=== PATIENT | male | born 1955 | race African-American/Black ===

== ENCOUNTER 2020-03-10 16:09 | Inpatient (IN) | payer MEDICAID ==
[~2020-03-10] VITALS: Ht 172.7 cm; Wt 95.3 kg
[2020-03-10] VITALS (10 sets, daily range): BP systolic 100–182; BP diastolic 68–116
[2020-03-10] MEDS ORDERED: EPINEPHRINE 0.1MG/ML (1:10,000) 10ML SYR ONE (16:26)
[2020-03-10] MEDS ORDERED: MIDAZOLAM HCL 2 MG/2 ML VIAL ONE (16:56)
[2020-03-10] MEDS ORDERED: PROPOFOL 10MG/ML 100ML 100 ML IV SCH (17:00)
[2020-03-10] MEDS ORDERED: SODIUM CHLORIDE 0.9% 1,000 ML IV ONE (17:00)
[2020-03-10 17:30] LABS: BG BASE EXCESS -9.5 mmol/L (-2.0-2.0); BG CARBOXYHEMOGLOBIN 0.3 % (0.5-1.5); BG DEOXYHEMOGLOBIN 0.4 % (0.0-5.0); BG FRACTION INSPIRED OXYGEN 100; BG HCO3 ACT 21.1 mmol/L (22.0-26.0); BG METHEMOGLOBIN 0.7 % (0.0-1.5); BG OXYGEN SATURATION 99.6 % (92.0-98.5); BG OXYHEMOGLOBIN 98.6 % (94.0-97.0); BG PCO2 72.4 mmHg (35.0-45.0); BG PH 7.083 (7.350-7.450); BG PO2 568.7 mmHg (75.0-100.0); BG SAMPLE SITE RIGHT RADIAL; BG TIDAL VOLUME(mL) 500 mL; BG TOTAL HEMOGLOBIN 11.6 g/dL (12.0-18.0); BG VENT MODE VENT - A/C; BG VENT RATE 16 set
[2020-03-10 18:08] LABS: HEMATOCRIT. 32.1 % (42.0-52.0); HEMOGLOBIN. 10.8 g/dL (14.0-18.0); MEAN CORPUSCULAR HEMOGLOBIN 29.8 pg (28.0-32.0); MEAN PLATELET VOLUME 6.4 fl (7.4-10.4); PLATELET 333 x1000/uL (130-400); RED BLOOD CELL COUNT 3.61 mill/uL (4.7-6.1); RED CELL DISTRIBUTION WIDTH 15.9 % (11.6-14.6)
[2020-03-10 18:08] LABS: CLARITY URINE CLOUDY (CLEAR); COLOR URINE ORANGE (YELLOW); KETONES URINE NEGATIVE (NEGATIVE); LEUKOCYTE ESTERASE URINE NEGATIVE (NEGATIVE); NITRITE URINE NEGATIVE (NEGATIVE); OCCULT BLOOD URINE 2+ (NEGATIVE); PH URINE 6.5 (4.5-8.0); PROTEIN URINE 3+ (NEGATIVE); SPECIFIC GRAVITY URINE 1.014 (1.005-1.030)
[2020-03-10] MEDS ORDERED: LORAZEPAM 2MG/ML CPJ ONE (18:12)
[2020-03-10 18:14] LABS: PROTHROMBIN TIME 10.5 sec (9.6-11.0)
[2020-03-10 18:19] LABS: CHLORIDE 106 mEq/L (98-107)
[2020-03-10] MEDS ORDERED: MIDAZOLAM HCL 50 MG in DEXTROSE 5% WATER 40 ML IV ONE (18:45)
[2020-03-10] MEDS ORDERED: FENTANYL CITRATE/PF 500 MCG in SODIUM CHLORIDE 0.9% 40 ML IV PRN ×2 (18:45→19:00)
[2020-03-10] MEDS ORDERED: NOREPINEPHRINE 4 MG in DEXT 5% WATER 246 ML IV ONE (18:45)
[2020-03-10] MEDS ORDERED: NOREPINEPHRINE 4MG/250ML PMX 250 ML IV ONE (18:46)
[2020-03-10 18:59] LABS: PLATELET ESTIMATE NORMAL
[2020-03-10] MEDS ORDERED: ASPIRIN 300MG SUPP PR ONE (19:00)
[2020-03-10] MEDS ORDERED: MIDAZOLAM HCL 50 MG in DEXTROSE 5% WATER 40 ML IV NR (19:00)
[2020-03-10] MEDS ORDERED: ALBUTEROL (0.083%) 2.5MG/3ML NEB HHN STA (19:02)
[2020-03-10] MEDS ORDERED: IPRATROPIUM BROMIDE (0.02%) 0.5MG/2.5ML NEB HHN STA (19:02)
[2020-03-10] MEDS ORDERED: SODIUM CHLORIDE 0.9% 1,000 ML IV SCH (21:49)
[2020-03-10] MEDS ORDERED: ONDANSETRON HCL 4MG/2ML INJ IV PRN (22:00)
[2020-03-10] MEDS ORDERED: DOCUSATE SODIUM 100MG CAPSULE PO PRN (22:00)
[2020-03-10] MEDS ORDERED: ASPIRIN 325MG EC TABLET PO SCH (22:00)
[2020-03-10] MEDS ORDERED: ZOLPIDEM TARTRATE 5MG TABLET PO PRN (22:00)
[2020-03-10 22:33] LABS: BG BASE EXCESS -4.8 mmol/L (-2.0-2.0); BG CARBOXYHEMOGLOBIN 0.3 % (0.5-1.5); BG DEOXYHEMOGLOBIN 2.8 % (0.0-5.0); BG FRACTION INSPIRED OXYGEN 50; BG HCO3 ACT 21.3 mmol/L (22.0-26.0); BG METHEMOGLOBIN 0.4 % (0.0-1.5); BG OXYGEN SATURATION 97.2 % (92.0-98.5); BG OXYHEMOGLOBIN 96.5 % (94.0-97.0); BG PCO2 43.4 mmHg (35.0-45.0); BG PH 7.309 (7.350-7.450); BG PO2 103.8 mmHg (75.0-100.0); BG SAMPLE SITE LEFT RADIAL; BG TIDAL VOLUME(mL) 500 mL; BG TOTAL HEMOGLOBIN 11.8 g/dL (12.0-18.0); BG VENT MODE VENT - A/C; BG VENT RATE 20 set
[2020-03-10] MEDS ORDERED: NOREPINEPHRINE 4 MG in DEXT 5% WATER 246 ML IV SCH ×4 (23:00)
[2020-03-10 23:41] LABS: CHLORIDE 109 mEq/L (98-107)
[2020-03-10 23:49] LABS: CREATINE KINASE 986 IU/L (39-308)
[2020-03-10 23:51] LABS: *AMPHETAMINES SCREEN URINE NEGATIVE (NEGATIVE)
[2020-03-10 23:52] LABS: *BARBITURATES SCREEN URINE NEGATIVE (NEGATIVE); *BENZODIAZEPINES SCREEN URINE PRESUMTIVE POSITIVE (NEGATIVE); *COCAINE SCREEN URINE PRESUMTIVE POSITIVE (NEGATIVE); CANNABINOID URINE SCREEN NEGATIVE (NEGATIVE); CREATINE KINASE MB FRACTION 13.3 ng/mL (0.5-3.6); METHADONE URINE SCREEN NEGATIVE (NEGATIVE); OPIATES URINE SCREEN NEGATIVE (NEGATIVE); PHENCYCLIDINE URINE SCREEN NEGATIVE (NEGATIVE)
[2020-03-11] VITALS (42 sets, daily range): BP systolic 98–150; BP diastolic 61–102
[2020-03-11] MEDS: SODIUM CHLORIDE 0.9% 1,000 ML IV SCH ×4 (00:28→23:03)
[2020-03-11] MEDS: MIDAZOLAM HCL 50 MG in DEXTROSE 5% WATER 40 ML IV PRN ×3 (01:15→23:10)
[2020-03-11] MEDS: FENTANYL CITRATE/PF 500 MCG in SODIUM CHLORIDE 0.9% 40 ML IV PRN ×2 (01:16→12:38)
[2020-03-11 05:33] LABS: HEMATOCRIT. 32.7 % (42.0-52.0); HEMOGLOBIN. 10.7 g/dL (14.0-18.0); MEAN CORPUSCULAR HEMOGLOBIN 28.7 pg (28.0-32.0); MEAN CORPUSCULAR VOLUME 87.6 fL (80.0-94.0); MEAN PLATELET VOLUME 6.3 fl (7.4-10.4); PLATELET 294 x1000/uL (130-400); RED BLOOD CELL COUNT 3.73 mill/uL (4.7-6.1); RED CELL DISTRIBUTION WIDTH 15.5 % (11.6-14.6)
[2020-03-11 05:45] LABS: CHLORIDE 108 mEq/L (98-107)
[2020-03-11 06:00] LABS: CREATINE KINASE 964 IU/L (39-308); CREATINE KINASE MB FRACTION 10.3 ng/mL (0.5-3.6)
[2020-03-11] MEDS ORDERED: ALBU6.7H9 INH (09:25)
[2020-03-11] MEDS ORDERED: UMEC1DIS INH (09:25)
[2020-03-11] MEDS ORDERED: AZIT250T12 MT (09:25)
[2020-03-11] MEDS ORDERED: CLOP75TA33 MT (09:25)
[2020-03-11] MEDS ORDERED: LOSA100T32 MT (09:25)
[2020-03-11] MEDS ORDERED: ASCO125T PO (09:25)
[2020-03-11] MEDS ORDERED: ERGO2000 MT (09:25)
[2020-03-11] MEDS ORDERED: FISH MT (09:25)
[2020-03-11] MEDS ORDERED: ATOR-2 MT (09:25)
[2020-03-11] MEDS ORDERED: FERR-71 MT (09:25)
[2020-03-11] MEDS ORDERED: TAMS-11 MT (09:25)
[2020-03-11 10:00] LABS: PLATELET ESTIMATE NORMAL
[2020-03-11 10:20] LABS: BG BASE EXCESS -0.5 mmol/L (-2.0-2.0); BG CARBOXYHEMOGLOBIN 0.3 % (0.5-1.5); BG DEOXYHEMOGLOBIN 1.3 % (0.0-5.0); BG FRACTION INSPIRED OXYGEN 50; BG HCO3 ACT 24.1 mmol/L (22.0-26.0); BG METHEMOGLOBIN 0.1 % (0.0-1.5); BG OXYGEN SATURATION 98.7 % (92.0-98.5); BG OXYHEMOGLOBIN 98.3 % (94.0-97.0); BG PCO2 39.5 mmHg (35.0-45.0); BG PH 7.403 (7.350-7.450); BG PO2 139.5 mmHg (75.0-100.0); BG SAMPLE SITE RIGHT RADIAL; BG TIDAL VOLUME(mL) 500 mL; BG TOTAL HEMOGLOBIN 11.5 g/dL (12.0-18.0); BG VENT MODE VENT - A/C; BG VENT RATE 20 set
[2020-03-11 14:35] LABS: PHOSPHORUS 3.3 mg/dL (2.5-4.9)
[2020-03-12] VITALS (22 sets, daily range): BP systolic 104–128; BP diastolic 68–94
[2020-03-12] MEDS: FENTANYL CITRATE/PF 500 MCG in SODIUM CHLORIDE 0.9% 40 ML IV PRN ×4 (00:47→23:52)
[2020-03-12] MEDS: ACETAMINOPHEN 650MG/20.3ML UDC PO PRN ×2 (02:31→16:18)
[2020-03-12] MEDS: IPRATROPIUM/ALBUTEROL 0.5-3(2.5)MG/3ML NEB NEB PRN ×2 (05:41→08:25)
[2020-03-12] MEDS: SODIUM CHLORIDE 0.9% 1,000 ML IV SCH ×3 (05:53→21:44)
[2020-03-12 06:14] LABS: HEMATOCRIT. 31.6 % (42.0-52.0); HEMOGLOBIN. 10.5 g/dL (14.0-18.0); MEAN CORPUSCULAR HEMOGLOBIN 29.4 pg (28.0-32.0); MEAN CORPUSCULAR VOLUME 88.6 fL (80.0-94.0); MEAN PLATELET VOLUME 6.9 fl (7.4-10.4); PLATELET 258 x1000/uL (130-400); RED BLOOD CELL COUNT 3.57 mill/uL (4.7-6.1); RED CELL DISTRIBUTION WIDTH 16.1 % (11.6-14.6)
[2020-03-12 06:28] LABS: CHLORIDE 112 mEq/L (98-107)
[2020-03-12] MEDS: MIDAZOLAM HCL 50 MG in DEXTROSE 5% WATER 40 ML IV PRN ×2 (06:42→20:40)
[2020-03-12 07:54] LABS: BG BASE EXCESS -0.3 mmol/L (-2.0-2.0); BG CARBOXYHEMOGLOBIN 0.3 % (0.5-1.5); BG FRACTION INSPIRED OXYGEN 50; BG HCO3 ACT 25.3 mmol/L (22.0-26.0); BG METHEMOGLOBIN 0.3 % (0.0-1.5); BG OXYHEMOGLOBIN 96.4 % (94.0-97.0); BG PCO2 45.3 mmHg (35.0-45.0); BG PH 7.365 (7.350-7.450); BG PO2 96.2 mmHg (75.0-100.0); BG SAMPLE SITE RIGHT RADIAL; BG TIDAL VOLUME(mL) 500 mL; BG TOTAL HEMOGLOBIN 10.9 g/dL (12.0-18.0); BG VENT MODE VENT - A/C; BG VENT RATE 20 set
[2020-03-12] MEDS ORDERED: MAGNESIUM 1 G PREMIX 100 ML IV SCH (10:00)
[2020-03-12] MEDS ORDERED: POTASSIUM PHOS,M-BASIC-D-BASIC 15 MMOL in DEXT 5% WATER 245 ML IV SCH (11:00)
[2020-03-12 12:32] LABS: PLATELET ESTIMATE NORMAL
[2020-03-12] MEDS: IPRATROPIUM/ALBUTEROL 0.5-3(2.5)MG/3ML NEB HHN SCH ×3 (12:35→20:30)
[2020-03-12] MEDS: PANTOPRAZOLE SODIUM 40 MG/VIAL IV SCH (15:28)
[2020-03-12] MEDS: ATORVASTATIN CALCIUM 40MG TABLET PO SCH (21:44)
[2020-03-12] MEDS: METRONIDAZOLE 500 MG PREMIX 100 ML IV SCH (23:12)
[2020-03-12] MEDS: CEFTRIAXONE 1 G PREMIX 50 ML IV SCH (23:12)
[2020-03-13] VITALS (21 sets, daily range): BP systolic 109–151; BP diastolic 64–98
[2020-03-13] MEDS: IPRATROPIUM/ALBUTEROL 0.5-3(2.5)MG/3ML NEB HHN SCH ×6 (00:18→21:16)
[2020-03-13 06:12] LABS: BASOPHILS % 0.2 % (0.0-2.0); EOSINOPHILS % 1.2 % (0.0-5.0); HEMATOCRIT. 32.6 % (42.0-52.0); HEMOGLOBIN. 10.6 g/dL (14.0-18.0); LYMPHOCYTES % 7.1 % (20.0-50.0); MEAN CORPUSCULAR HEMOGLOBIN 28.9 pg (28.0-32.0); MEAN PLATELET VOLUME 6.7 fl (7.4-10.4); MONOCYTES % 9.5 % (2.0-8.0); PLATELET 254 x1000/uL (130-400); RED BLOOD CELL COUNT 3.66 mill/uL (4.7-6.1); RED CELL DISTRIBUTION WIDTH 15.4 % (11.6-14.6)
[2020-03-13] MEDS: METRONIDAZOLE 500 MG PREMIX 100 ML IV SCH ×3 (06:19→21:29)
[2020-03-13] MEDS: SODIUM CHLORIDE 0.9% 1,000 ML IV SCH ×2 (06:19→16:26)
[2020-03-13 06:25] LABS: CHLORIDE 110 mEq/L (98-107)
[2020-03-13 06:34] LABS: PHOSPHORUS 2.5 mg/dL (2.5-4.9)
[2020-03-13] MEDS: PANTOPRAZOLE SODIUM 40 MG/VIAL IV SCH (08:21)
[2020-03-13] MEDS: CLOPIDOGREL 75MG TABLET PO SCH (08:22)
[2020-03-13] MEDS: TAMSULOSIN HCL 0.4MG SR CAPSULE PO SCH (08:22)
[2020-03-13] MEDS: MIDAZOLAM HCL 50 MG in DEXTROSE 5% WATER 40 ML IV PRN ×2 (08:22→22:37)
[2020-03-13] MEDS: LOSARTAN POTASSIUM 100 MG TABLET PO SCH (08:22)
[2020-03-13] MEDS: ACETAMINOPHEN 650MG/20.3ML UDC PO PRN (12:42)
[2020-03-13] MEDS: FENTANYL CITRATE/PF 500 MCG in SODIUM CHLORIDE 0.9% 40 ML IV PRN (13:00)
[2020-03-13] MEDS ORDERED: METHYLPREDNISOLONE SOD SUCC 125 MG/2 ML VIAL IV NR (16:00)
[2020-03-13] MEDS: CEFTRIAXONE 1 G PREMIX 50 ML IV SCH (21:24)
[2020-03-13] MEDS: ATORVASTATIN CALCIUM 40MG TABLET PO SCH (21:25)
[2020-03-13] MEDS: METHYLPREDNISOLONE SOD SUCC 40 MG/ML VIAL IV SCH (22:36)
[2020-03-14] VITALS (53 sets, daily range): BP systolic 119–160; BP diastolic 71–116
[2020-03-14] MEDS: IPRATROPIUM/ALBUTEROL 0.5-3(2.5)MG/3ML NEB HHN SCH ×6 (00:22→21:00)
[2020-03-14] MEDS: SODIUM CHLORIDE 0.9% 1,000 ML IV SCH ×2 (03:43→03:45)
[2020-03-14] MEDS: FENTANYL CITRATE/PF 500 MCG in SODIUM CHLORIDE 0.9% 40 ML IV PRN (04:20)
[2020-03-14 05:24] LABS: HEMATOCRIT. 31.8 % (42.0-52.0); HEMOGLOBIN. 10.6 g/dL (14.0-18.0); MEAN CORPUSCULAR VOLUME 86.8 fL (80.0-94.0); MEAN PLATELET VOLUME 6.5 fl (7.4-10.4); PLATELET 248 x1000/uL (130-400); RED BLOOD CELL COUNT 3.67 mill/uL (4.7-6.1); RED CELL DISTRIBUTION WIDTH 15.2 % (11.6-14.6)
[2020-03-14] MEDS: METRONIDAZOLE 500 MG PREMIX 100 ML IV SCH ×3 (05:26→21:33)
[2020-03-14] MEDS: METHYLPREDNISOLONE SOD SUCC 40 MG/ML VIAL IV SCH ×3 (05:26→21:33)
[2020-03-14 07:07] LABS: CHLORIDE 111 mEq/L (98-107)
[2020-03-14 07:13] LABS: PHOSPHORUS 2.1 mg/dL (2.5-4.9)
[2020-03-14 08:19] LABS: PLATELET ESTIMATE NORMAL
[2020-03-14] MEDS: TAMSULOSIN HCL 0.4MG SR CAPSULE PO SCH (09:10)
[2020-03-14] MEDS: CLOPIDOGREL 75MG TABLET PO SCH (09:10)
[2020-03-14] MEDS: LOSARTAN POTASSIUM 100 MG TABLET PO SCH (09:10)
[2020-03-14] MEDS: PANTOPRAZOLE SODIUM 40 MG/VIAL IV SCH (09:10)
[2020-03-14] MEDS: AMLODIPINE 5MG TABLET PO SCH ×2 (12:04→20:30)
[2020-03-14] MEDS ORDERED: POTASSIUM PHOS,M-BASIC-D-BASIC 15 MMOL in DEXT 5% WATER 245 ML IV NR (14:30)
[2020-03-14] MEDS: MIDAZOLAM HCL 50 MG in DEXTROSE 5% WATER 40 ML IV PRN (15:38)
[2020-03-14] MEDS: ATORVASTATIN CALCIUM 40MG TABLET PO SCH (20:29)
[2020-03-14] MEDS: CEFTRIAXONE 1 G PREMIX 50 ML IV SCH (20:29)
[2020-03-15] VITALS (47 sets, daily range): BP systolic 111–147; BP diastolic 67–98
[2020-03-15] MEDS: SODIUM CHLORIDE 0.9% 1,000 ML IV SCH ×2 (00:07→18:48)
[2020-03-15] MEDS: IPRATROPIUM/ALBUTEROL 0.5-3(2.5)MG/3ML NEB HHN SCH ×5 (00:28→20:06)
[2020-03-15] MEDS: FENTANYL CITRATE/PF 500 MCG in SODIUM CHLORIDE 0.9% 40 ML IV PRN ×3 (00:58→19:48)
[2020-03-15] MEDS: MIDAZOLAM HCL 50 MG in DEXTROSE 5% WATER 40 ML IV PRN ×3 (00:59→19:47)
[2020-03-15] MEDS: METRONIDAZOLE 500 MG PREMIX 100 ML IV SCH ×3 (05:10→21:27)
[2020-03-15] MEDS: METHYLPREDNISOLONE SOD SUCC 40 MG/ML VIAL IV SCH ×3 (05:10→21:27)
[2020-03-15 09:48] LABS: BG BASE EXCESS 0.9 mmol/L (-2.0-2.0); BG CARBOXYHEMOGLOBIN 0.3 % (0.5-1.5); BG DEOXYHEMOGLOBIN 2.4 % (0.0-5.0); BG FRACTION INSPIRED OXYGEN 50; BG METHEMOGLOBIN 0.2 % (0.0-1.5); BG OXYGEN SATURATION 97.6 % (92.0-98.5); BG OXYHEMOGLOBIN 97.1 % (94.0-97.0); BG PCO2 37.9 mmHg (35.0-45.0); BG PH 7.438 (7.350-7.450); BG PO2 104.5 mmHg (75.0-100.0); BG SAMPLE SITE RIGHT RADIAL; BG TIDAL VOLUME(mL) 500 mL; BG TOTAL HEMOGLOBIN 10.5 g/dL (12.0-18.0); BG VENT MODE VENT - A/C; BG VENT RATE 20 set
[2020-03-15 10:21] LABS: HEMATOCRIT. 29.5 % (42.0-52.0); HEMOGLOBIN. 9.8 g/dL (14.0-18.0); MEAN CORPUSCULAR HEMOGLOBIN 28.4 pg (28.0-32.0); MEAN CORPUSCULAR VOLUME 85.6 fL (80.0-94.0); MEAN PLATELET VOLUME 6.6 fl (7.4-10.4); PLATELET 282 x1000/uL (130-400); RED BLOOD CELL COUNT 3.44 mill/uL (4.7-6.1); RED CELL DISTRIBUTION WIDTH 15.1 % (11.6-14.6)
[2020-03-15] MEDS: LOSARTAN POTASSIUM 100 MG TABLET PO SCH (10:27)
[2020-03-15] MEDS: TAMSULOSIN HCL 0.4MG SR CAPSULE PO SCH (10:27)
[2020-03-15] MEDS: CLOPIDOGREL 75MG TABLET PO SCH (10:27)
[2020-03-15] MEDS: PANTOPRAZOLE SODIUM 40 MG/VIAL IV SCH (10:27)
[2020-03-15] MEDS: AMLODIPINE 5MG TABLET PO SCH ×2 (10:28→21:23)
[2020-03-15 10:35] LABS: CHLORIDE 111 mEq/L (98-107)
[2020-03-15] MEDS ORDERED: DEXTROSE 50% WATER 50ML SYRINGE IV PRN (11:45)
[2020-03-15] MEDS: INSULIN LISPRO 100 UNITS/ML SUBCUT SCH ×2 (12:00→18:10)
[2020-03-15] MEDS: BLOOD SUGAR DIAGNOSTIC STRIP TEST SCH ×2 (12:00→18:09)
[2020-03-15] MEDS ORDERED: BISACODYL 10MG SUPP PR PRN (12:00)
[2020-03-15] MEDS ORDERED: DILTIAZEM HCL 5MG/ML 5ML VIAL IV SCH ×2 (13:30→13:45)
[2020-03-15] MEDS ORDERED: DILTIAZEM HCL 120MG CAPSULE CD 24HR PO SCH (18:00)
[2020-03-15 19:11] LABS: PLATELET ESTIMATE NORMAL
[2020-03-15] MEDS: CEFTRIAXONE 1 G PREMIX 50 ML IV SCH (21:23)
[2020-03-15] MEDS: ATORVASTATIN CALCIUM 40MG TABLET PO SCH (21:23)
[2020-03-15] MEDS: DILTIAZEM HCL 60MG TABLET PO SCH (21:38)
[2020-03-16] VITALS (64 sets, daily range): BP systolic 103–160; BP diastolic 62–97
[2020-03-16] MEDS: IPRATROPIUM/ALBUTEROL 0.5-3(2.5)MG/3ML NEB HHN SCH ×7 (00:02→21:45)
[2020-03-16] MEDS: DILTIAZEM HCL 60MG TABLET PO SCH ×2 (00:09→05:28)
[2020-03-16] MEDS: INSULIN LISPRO 100 UNITS/ML SUBCUT SCH ×5 (00:09→23:03)
[2020-03-16] MEDS: FENTANYL CITRATE/PF 1,000 MCG in SODIUM CHLORIDE 0.9% 80 ML IV PRN ×2 (01:57→15:54)
[2020-03-16] MEDS: MIDAZOLAM HCL 100 MG in DEXT 5% WATER 80 ML IV PRN (01:59)
[2020-03-16] MEDS: METRONIDAZOLE 500 MG PREMIX 100 ML IV SCH ×3 (05:27→21:00)
[2020-03-16] MEDS: METHYLPREDNISOLONE SOD SUCC 40 MG/ML VIAL IV SCH ×3 (05:27→21:00)
[2020-03-16] MEDS: BLOOD SUGAR DIAGNOSTIC STRIP TEST SCH ×5 (05:29→23:03)
[2020-03-16 08:42] LABS: CHLORIDE 112 mEq/L (98-107)
[2020-03-16 08:54] LABS: HEMATOCRIT. 29.1 % (42.0-52.0); HEMOGLOBIN. 9.7 g/dL (14.0-18.0); MEAN CORPUSCULAR HEMOGLOBIN 28.7 pg (28.0-32.0); MEAN CORPUSCULAR VOLUME 85.9 fL (80.0-94.0); PLATELET 298 x1000/uL (130-400); RED BLOOD CELL COUNT 3.39 mill/uL (4.7-6.1); RED CELL DISTRIBUTION WIDTH 15.2 % (11.6-14.6)
[2020-03-16] MEDS: PANTOPRAZOLE SODIUM 40 MG/VIAL IV SCH (09:23)
[2020-03-16] MEDS: CLOPIDOGREL 75MG TABLET PO SCH (09:23)
[2020-03-16] MEDS: AMLODIPINE 5MG TABLET PO SCH ×2 (09:23→21:00)
[2020-03-16] MEDS: LOSARTAN POTASSIUM 100 MG TABLET PO SCH (09:23)
[2020-03-16] MEDS: TAMSULOSIN HCL 0.4MG SR CAPSULE PO SCH (09:24)
[2020-03-16 11:28] LABS: PLATELET ESTIMATE NORMAL
[2020-03-16] MEDS: DILTIAZEM HCL 90MG TABLET PO SCH ×4 (11:59→23:07)
[2020-03-16] MEDS: DOCUSATE SODIUM SUGAR FREE 100MG/10ML UDC NG PRN (11:59)
[2020-03-16] MEDS: SODIUM CHLORIDE 0.9% 1,000 ML IV SCH (12:02)
[2020-03-16] MEDS ORDERED: AMIODARONE HCL 150 MG in DEXT 5% WATER 100 ML IV SCH (13:30)
[2020-03-16] MEDS: AMIODARONE HCL 900 MG in DEXT 5% WATER 482 ML IV SCH (15:21)
[2020-03-16] MEDS: ENOXAPARIN 100MG/ML SYR SUBCUT SCH (18:20)
[2020-03-16] MEDS: CEFTRIAXONE 1 G PREMIX 50 ML IV SCH (21:00)
[2020-03-16] MEDS: ATORVASTATIN CALCIUM 40MG TABLET PO SCH (21:00)
[2020-03-17] VITALS (55 sets, daily range): BP systolic 112–187; BP diastolic 69–110
[2020-03-17] MEDS: IPRATROPIUM/ALBUTEROL 0.5-3(2.5)MG/3ML NEB HHN SCH ×6 (00:48→20:17)
[2020-03-17] MEDS: SODIUM CHLORIDE 0.9% 1,000 ML IV SCH ×2 (01:59→14:53)
[2020-03-17] MEDS: DILTIAZEM HCL 90MG TABLET PO SCH (05:00)
[2020-03-17] MEDS: METHYLPREDNISOLONE SOD SUCC 40 MG/ML VIAL IV SCH ×3 (05:10→21:47)
[2020-03-17] MEDS: METRONIDAZOLE 500 MG PREMIX 100 ML IV SCH ×3 (05:10→21:47)
[2020-03-17] MEDS: ENOXAPARIN 100MG/ML SYR SUBCUT SCH ×2 (05:11→17:46)
[2020-03-17] MEDS: BLOOD SUGAR DIAGNOSTIC STRIP TEST SCH ×4 (05:27→23:21)
[2020-03-17] MEDS: MIDAZOLAM HCL 100 MG in DEXT 5% WATER 80 ML IV PRN (05:41)
[2020-03-17] MEDS: FENTANYL CITRATE/PF 1,000 MCG in SODIUM CHLORIDE 0.9% 80 ML IV PRN (05:41)
[2020-03-17] MEDS: INSULIN LISPRO 100 UNITS/ML SUBCUT SCH ×4 (05:46→23:28)
[2020-03-17 06:36] LABS: HEMATOCRIT. 30.7 % (42.0-52.0); HEMOGLOBIN. 10.3 g/dL (14.0-18.0); MEAN CORPUSCULAR HEMOGLOBIN 29.1 pg (28.0-32.0); MEAN CORPUSCULAR VOLUME 86.4 fL (80.0-94.0); MEAN PLATELET VOLUME 6.8 fl (7.4-10.4); PLATELET 304 x1000/uL (130-400); RED BLOOD CELL COUNT 3.55 mill/uL (4.7-6.1); RED CELL DISTRIBUTION WIDTH 15.2 % (11.6-14.6)
[2020-03-17 06:37] LABS: CHLORIDE 111 mEq/L (98-107)
[2020-03-17] MEDS: TAMSULOSIN HCL 0.4MG SR CAPSULE PO SCH ×2 (09:00→09:11)
[2020-03-17] MEDS: CLOPIDOGREL 75MG TABLET PO SCH (09:11)
[2020-03-17] MEDS: PANTOPRAZOLE SODIUM 40 MG/VIAL IV SCH (09:11)
[2020-03-17] MEDS: LOSARTAN POTASSIUM 100 MG TABLET PO SCH (09:11)
[2020-03-17] MEDS: AMLODIPINE 5MG TABLET PO SCH ×2 (09:11→21:47)
[2020-03-17] MEDS: LACTULOSE 20G/30ML UDC PO SCH ×2 (13:24→21:48)
[2020-03-17 13:49] LABS: NUCLEATED RED BLOOD CELLS 1 /100 WBC; PLATELET ESTIMATE NORMAL
[2020-03-17] MEDS: AMIODARONE HCL 900 MG in DEXT 5% WATER 482 ML IV SCH (16:44)
[2020-03-17] MEDS: CEFTRIAXONE 1 G PREMIX 50 ML IV SCH (21:47)
[2020-03-17] MEDS: ATORVASTATIN CALCIUM 40MG TABLET PO SCH (21:47)
[2020-03-18] VITALS (56 sets, daily range): BP systolic 107–167; BP diastolic 57–100
[2020-03-18] MEDS: IPRATROPIUM/ALBUTEROL 0.5-3(2.5)MG/3ML NEB HHN SCH ×6 (00:26→20:31)
[2020-03-18] MEDS: FENTANYL CITRATE/PF 1,000 MCG in SODIUM CHLORIDE 0.9% 80 ML IV PRN ×2 (01:49→18:48)
[2020-03-18] MEDS: SODIUM CHLORIDE 0.9% 1,000 ML IV SCH (04:59)
[2020-03-18] MEDS: METHYLPREDNISOLONE SOD SUCC 40 MG/ML VIAL IV SCH ×3 (05:29→21:07)
[2020-03-18] MEDS: ENOXAPARIN 100MG/ML SYR SUBCUT SCH ×2 (05:29→18:17)
[2020-03-18] MEDS: LACTULOSE 20G/30ML UDC PO SCH ×3 (05:29→21:07)
[2020-03-18] MEDS: BLOOD SUGAR DIAGNOSTIC STRIP TEST SCH ×3 (05:52→18:07)
[2020-03-18] MEDS: INSULIN LISPRO 100 UNITS/ML SUBCUT SCH ×3 (06:38→18:16)
[2020-03-18 07:17] LABS: HEMATOCRIT. 32.6 % (42.0-52.0); HEMOGLOBIN. 10.6 g/dL (14.0-18.0); MEAN CORPUSCULAR HEMOGLOBIN 28.3 pg (28.0-32.0); MEAN CORPUSCULAR VOLUME 86.7 fL (80.0-94.0); MEAN PLATELET VOLUME 6.9 fl (7.4-10.4); PLATELET 392 x1000/uL (130-400); RED BLOOD CELL COUNT 3.76 mill/uL (4.7-6.1); RED CELL DISTRIBUTION WIDTH 15.5 % (11.6-14.6)
[2020-03-18 08:02] LABS: CHLORIDE 111 mEq/L (98-107)
[2020-03-18] MEDS: DOCUSATE SODIUM SUGAR FREE 100MG/10ML UDC NG PRN (09:18)
[2020-03-18] MEDS: ACETAMINOPHEN 650MG/20.3ML UDC PO PRN (09:18)
[2020-03-18] MEDS: PANTOPRAZOLE SODIUM 40 MG/VIAL IV SCH (09:18)
[2020-03-18] MEDS: LOSARTAN POTASSIUM 100 MG TABLET PO SCH (09:18)
[2020-03-18] MEDS: AMLODIPINE 5MG TABLET PO SCH ×2 (09:19→21:07)
[2020-03-18] MEDS: TAMSULOSIN HCL 0.4MG SR CAPSULE PO SCH (09:19)
[2020-03-18 10:40] LABS: PLATELET ESTIMATE NORMAL
[2020-03-18] MEDS ORDERED: SODIUM CHLORIDE 0.9% 1,000 ML IV SCH (17:45)
[2020-03-18] MEDS ORDERED: FUROSEMIDE 40MG/4ML VIAL IVP NR (17:45)
[2020-03-18] MEDS: ATORVASTATIN CALCIUM 40MG TABLET PO SCH (21:07)
[2020-03-19] VITALS (38 sets, daily range): BP systolic 118–175; BP diastolic 75–115
[2020-03-19] MEDS: IPRATROPIUM/ALBUTEROL 0.5-3(2.5)MG/3ML NEB HHN SCH ×4 (00:09→20:20)
[2020-03-19] MEDS: BLOOD SUGAR DIAGNOSTIC STRIP TEST SCH ×2 (00:12→05:50)
[2020-03-19] MEDS: INSULIN LISPRO 100 UNITS/ML SUBCUT SCH ×2 (00:19→06:18)
[2020-03-19] MEDS: MIDAZOLAM HCL 100 MG in DEXT 5% WATER 80 ML IV PRN (02:15)
[2020-03-19] MEDS: METHYLPREDNISOLONE SOD SUCC 40 MG/ML VIAL IV SCH (05:48)
[2020-03-19] MEDS: LACTULOSE 20G/30ML UDC PO SCH (05:48)
[2020-03-19] MEDS: ENOXAPARIN 100MG/ML SYR SUBCUT SCH (05:50)
[2020-03-19 06:30] LABS: HEMATOCRIT. 32.8 % (42.0-52.0); HEMOGLOBIN. 11.1 g/dL (14.0-18.0); MEAN CORPUSCULAR HEMOGLOBIN 28.7 pg (28.0-32.0); MEAN CORPUSCULAR VOLUME 84.7 fL (80.0-94.0); MEAN PLATELET VOLUME 6.8 fl (7.4-10.4); PLATELET 464 x1000/uL (130-400); RED BLOOD CELL COUNT 3.87 mill/uL (4.7-6.1); RED CELL DISTRIBUTION WIDTH 15.7 % (11.6-14.6)
[2020-03-19 06:38] LABS: CHLORIDE 111 mEq/L (98-107)
[2020-03-19] MEDS: TAMSULOSIN HCL 0.4MG SR CAPSULE PO SCH (08:08)
[2020-03-19] MEDS: PANTOPRAZOLE SODIUM 40 MG/VIAL IV SCH (08:08)
[2020-03-19] MEDS: LOSARTAN POTASSIUM 100 MG TABLET PO SCH (08:08)
[2020-03-19] MEDS: AMLODIPINE 5MG TABLET PO SCH (08:09)
[2020-03-19 09:27] LABS: NUCLEATED RED BLOOD CELLS 1 /100 WBC; PLATELET ESTIMATE NORMAL
[2020-03-19] MEDS: FENTANYL CITRATE/PF 1,000 MCG in SODIUM CHLORIDE 0.9% 80 ML IV PRN (10:45)
[2020-03-19] MEDS ORDERED: LORAZEPAM 2MG/ML CPJ IV NR (11:45)
[2020-03-19] MEDS ORDERED: MORPHINE SULFATE 2 MG/ML CPJ (NOT FOR IM USE) IV PRN (11:45)
[2020-03-19] MEDS ORDERED: MORPHINE SULFATE 4 MG/ML CPJ (NOT FOR IM USE) IV NR (11:45)
[2020-03-19] MEDS ORDERED: SCOPOLAMINE HYDROBROMIDE PATCH 72HR TD SCH (16:00)
[2020-03-19] MEDS: MORPHINE SULFATE 2 MG/ML CPJ (NOT FOR IM USE) IV PRN ×2 (16:35→18:44)
[2020-03-20] VITALS (17 sets, daily range): BP systolic 157–190; BP diastolic 86–153
[2020-03-20] MEDS: IPRATROPIUM/ALBUTEROL 0.5-3(2.5)MG/3ML NEB HHN SCH ×6 (00:21→20:55)
[2020-03-20] MEDS: MORPHINE SULFATE 2 MG/ML CPJ (NOT FOR IM USE) IV PRN ×3 (00:51→15:33)
[2020-03-20] MEDS ORDERED: ALBUTEROL 6.7GM HFA INHALER INH SCH (10:00)
[2020-03-21] VITALS: BP 164/92
[2020-03-21] MEDS: IPRATROPIUM/ALBUTEROL 0.5-3(2.5)MG/3ML NEB HHN SCH ×4 (00:16→13:45)
[2020-03-21 04:00] VITALS: BP 135/70
[2020-03-21 08:00] VITALS: BP 169/92
[2020-03-21 12:00] VITALS: BP 144/91
[2020-03-21] MEDS: MORPHINE SULFATE 2 MG/ML CPJ (NOT FOR IM USE) IV PRN (12:44)
[2020-03-21] MEDS ORDERED: LORAZEPAM 2MG/ML CPJ IV NR (12:45)
[2020-03-21 13:52] VITALS: BP 144/91
[2020-03-21 16:00] VITALS: BP 145/94
== END 2020-03-21 16:59 | disposition hospice, home (50) | DRG 130 ==
LOC: ER 16:09 → EDBEDREQSVC 19:08 → EDBEDREQ 19:08 → ENRESERV 21:27 → CVICU 22:12 → 6EST 03-20 08:19
PROVIDERS: ADMIT Internal Medicine; ATTEND Internal Medicine
PROC: 5A1955Z Respiratory Ventilation, Greater than 96 Consecutive Hours (ICD-10-PCS; principal; 2020-03-10)
PROC: 5A12012 Performance of Cardiac Output, Single, Manual (ICD-10-PCS; 2020-03-10)
PROC: 0BH18EZ Insertion of Endotracheal Airway into Trachea, Via Natural or Artificial Opening Endoscopic (ICD-10-PCS; 2020-03-10)
PROC: 06HY33Z Insertion of Infusion Device into Lower Vein, Percutaneous Approach (ICD-10-PCS; 2020-03-10)
PROC: B54BZZA Ultrasonography of Right Lower Extremity Veins, Guidance (ICD-10-PCS; 2020-03-10)
PROC: 4A10X4Z Monitoring of Central Nervous Electrical Activity, External Approach (ICD-10-PCS; 2020-03-10)
PROC: 5A2204Z Restoration of Cardiac Rhythm, Single (ICD-10-PCS; 2020-03-10)
PROC: 3E0A3GC Introduction of Other Therapeutic Substance into Bone Marrow, Percutaneous Approach (ICD-10-PCS; 2020-03-10)
PROC: 02HV33Z Insertion of Infusion Device into Superior Vena Cava, Percutaneous Approach (ICD-10-PCS; 2020-03-16)
PROC: B548ZZA Ultrasonography of Superior Vena Cava, Guidance (ICD-10-PCS; 2020-03-16)
DX: J96.02 Acute respiratory failure with hypercapnia (principal); I46.9 Cardiac arrest, cause unspecified; R57.9 Shock, unspecified; E43 Unspecified severe protein-calorie malnutrition; I47.1 Supraventricular tachycardia; G92 Toxic encephalopathy; G93.1 Anoxic brain damage, not elsewhere classified; Z99.11 Dependence on respirator [ventilator] status; E11.9 Type 2 diabetes mellitus without complications; D64.9 Anemia, unspecified; I48.0 Paroxysmal atrial fibrillation; M62.82 Rhabdomyolysis; I47.2 Ventricular tachycardia; J44.9 Chronic obstructive pulmonary disease, unspecified; I25.10 Atherosclerotic heart disease of native coronary artery without angina pectoris; R74.0 Nonspecific elevation of levels of transaminase and lactic acid dehydrogenase [LDH]; F14.129 Cocaine abuse with intoxication, unspecified; I50.9 Heart failure, unspecified; I11.0 Hypertensive heart disease with heart failure; N17.9 Acute kidney failure, unspecified; Z51.5 Encounter for palliative care; I48.92 Unspecified atrial flutter; Z66 Do not resuscitate; Z83.3 Family history of diabetes mellitus; Z82.5 Family history of asthma and other chronic lower respiratory diseases; Z82.49 Family history of ischemic heart disease and other diseases of the circulatory system; Z82.3 Family history of stroke; Z86.73 Personal history of transient ischemic attack (TIA), and cerebral infarction without residual deficits; Z95.5 Presence of coronary angioplasty implant and graft; Z87.891 Personal history of nicotine dependence; Z68.31 Body mass index [BMI] 31.0-31.9, adult; Z79.899 Other long term (current) drug therapy; I25.2 Old myocardial infarction; Z79.02 Long term (current) use of antithrombotics/antiplatelets
CPT/HCPCS: 36415; 36600; 71045; 76937; 80048; 80053; 80305; 81003; 82375; 82550; 82553; 82805; 82962; 83036; 83605; 83735; 83880; 84100; 84145; 84484; 85025; 87070; 87804; 93005; 93306; 93970; 94002; 94003; 94640; 95816; 96365; 99291; C1725; C9113; J0282; J0696; J1650; J1815; J1940; J2060; J2250; J2270; J2704; J2920; J2930; J3010; J3475; J3490; J7030; J7050; J7060

== ENCOUNTER 2020-03-21 18:36 | Inpatient (IN) | payer MEDICAID ==
[~2020-03-21] VITALS: Ht 182.9 cm; Wt 70.3 kg
[~2020-03-21 18:36] MED LIST: ALBU6.7H9 INH; ASCO125T PO; ATOR-2 MT; AZIT250T12 MT; CLOP75TA33 MT; ERGO2000 MT; FERR-71 MT; FISH MT; LOSA100T32 MT; TAMS-11 MT; UMEC1DIS INH
[2020-03-21] MEDS ORDERED: MORPHINE SULFATE 4 MG/ML CPJ (NOT FOR IM USE) IV STA (19:02)
[2020-03-21 19:36] LABS: HEMATOCRIT. 34.9 % (42.0-52.0); HEMOGLOBIN. 11.6 g/dL (14.0-18.0); MEAN CORPUSCULAR HEMOGLOBIN 28.5 pg (28.0-32.0); MEAN CORPUSCULAR VOLUME 85.5 fL (80.0-94.0); MEAN PLATELET VOLUME 6.4 fl (7.4-10.4); PLATELET 434 x1000/uL (130-400); RED BLOOD CELL COUNT 4.08 mill/uL (4.7-6.1); RED CELL DISTRIBUTION WIDTH 16.4 % (11.6-14.6)
[2020-03-21 19:40] LABS: CHLORIDE 112 mEq/L (98-107)
[2020-03-21 19:58] LABS: PLATELET ESTIMATE INCREASED
[2020-03-21] MEDS: MORPHINE SULFATE 2 MG/ML CPJ (NOT FOR IM USE) IV PRN (23:46)
[2020-03-22] MEDS ORDERED: MIDAZOLAM HCL 2 MG/2 ML VIAL IV ONE (04:00)
[2020-03-22] MEDS: MORPHINE SULFATE 2 MG/ML CPJ (NOT FOR IM USE) IV PRN (05:37)
[2020-03-22 10:00] VITALS: BP 153/101
[2020-03-22] MEDS ORDERED: ONDANSETRON HCL 4MG/2ML INJ IV PRN (11:00)
[2020-03-22] MEDS ORDERED: ACETAMINOPHEN 325MG TABLET PO PRN (11:00)
[2020-03-22] MEDS ORDERED: LORAZEPAM 2MG/ML CPJ IV PRN (11:00)
[2020-03-22] MEDS ORDERED: MORPHINE SULFATE 250 MG in DEXT 5% WATER 240 ML IV PRN (11:00)
[2020-03-22] MEDS: DEXT 5%/0.45% NACL 1000ML 1,000 ML IV SCH (13:20)
[2020-03-22] MEDS ORDERED: MORPHINE SULFATE 250 MG in DEXT 5% WATER 225 ML IV PRN (13:39)
[2020-03-22] MEDS ORDERED: ACETAMINOPHEN 650MG SUPP PR PRN (14:00)
[2020-03-22] MEDS ORDERED: SCOPOLAMINE HYDROBROMIDE PATCH 72HR TD SCH (14:00)
[2020-03-22 16:00] VITALS: BP 158/88
[2020-03-22 20:00] VITALS: BP 147/94
[2020-03-23] VITALS: BP_SYST 125; BP_SYST 139; BP_DIAS 79; BP_DIAS 87
[2020-03-23 04:00] VITALS: BP 125/79
[2020-03-23] MEDS: DEXT 5%/0.45% NACL 1000ML 1,000 ML IV SCH ×2 (05:17→21:53)
[2020-03-23 08:00] VITALS: BP 133/70
[2020-03-23 12:00] VITALS: BP 121/74
[2020-03-23 16:00] VITALS: BP 136/81
[2020-03-23 20:00] VITALS: BP 148/80
[2020-03-24] VITALS: BP 136/85
[2020-03-24 04:00] VITALS: BP 116/58
[2020-03-24 08:00] VITALS: BP 153/78
[2020-03-24 12:00] VITALS: BP 143/100
[2020-03-24 13:49] VITALS: BP 143/100
== END 2020-03-24 16:15 | disposition hospice, home (50) | DRG 137 ==
LOC: ER 18:41 → EDBEDREQSVC 19:41 → 7WST 19:54 → EDBEDREQSVC 19:57 → EDBEDREQ 19:57 → EDBEDREQTM 19:57 → EDBEDREQ 19:58 → ENRESERV 03-22 08:42
PROVIDERS: ADMIT Internal Medicine; ATTEND Internal Medicine
DX: J69.0 Pneumonitis due to inhalation of food and vomit (principal); J96.00 Acute respiratory failure, unspecified whether with hypoxia or hypercapnia; G93.1 Anoxic brain damage, not elsewhere classified; N17.9 Acute kidney failure, unspecified; I48.0 Paroxysmal atrial fibrillation; J44.0 Chronic obstructive pulmonary disease with (acute) lower respiratory infection; Z51.5 Encounter for palliative care; I48.92 Unspecified atrial flutter; Z66 Do not resuscitate; I10 Essential (primary) hypertension; I25.10 Atherosclerotic heart disease of native coronary artery without angina pectoris; E11.9 Type 2 diabetes mellitus without complications; F14.10 Cocaine abuse, uncomplicated; Z86.73 Personal history of transient ischemic attack (TIA), and cerebral infarction without residual deficits; Z79.899 Other long term (current) drug therapy; Z95.5 Presence of coronary angioplasty implant and graft; Z79.01 Long term (current) use of anticoagulants; Z20.828 Contact with and (suspected) exposure to other viral communicable diseases
CPT/HCPCS: 36415; 71045; 74018; 80053; 85025; 87635; 93005; 99285; J2250; J2270; J2274; J7060